=== PATIENT | female | born 1970 | race Hispanic/Latino ===

== ENCOUNTER 2017-04-23 10:51 | Outpatient (CLI) | payer MEDICARE ==
--- NOTE | 2017-04-23 14:23 | EKG ---
Test Reason : Blood Pressure : / mmHG Vent. Rate : 078 BPM Atrial Rate : 078 BPM P-R Int : 162 ms QRS Dur : 090 ms QT Int : 450 ms P-R-T Axes : 059 032 019 degrees QTc Int : 513 ms Sinus rhythm with frequent PVC's Prolonged QT Abnormal ECG No previous ECGs available Confirmed by DR. Joel COOK ([id number]) on 04/23/2017 2:23:07 PM Referred By: MADYSON Confirmed By:DR. Joel COOK
== END 2017-04-23 10:52 | disposition home or self-care (01) ==
LOC: EKG 10:51
PROVIDERS: ATTEND Internal Medicine Nephrology
DX: L49.9 Exfoliation due to erythematous condition involving 90 or more percent of body surface (principal)
CPT/HCPCS: 93005; 93010

== ENCOUNTER 2018-05-01 13:53 | Emergency (ER) | payer MEDICARE ==
--- NOTE | 2018-05-01 15:53 | RAD ---
CHEST 2 VIEWS: Date: 05/01/18 HISTORY: Cough. COMPARISON: None. FINDINGS: There is a subtle right basilar air space opacity. Remainder of lungs are clear. No pneumothorax or effusion. Right upper quadrant surgical clips. IMPRESSION: Faint peripheral right lower lobe air space opacity concerning for infection. Follow-up after treatme nt recommended. POS: [facility]
[2018-05-01 16:48] LABS: #Eosinphils 0.3 thou/uL (0.0-0.7); #Lymphocytes 1.6 thou/uL (1.20-3.40); #Monocytes 0.7 thou/uL (0.11-0.59); #Neutrophils 4.9 thou/uL (1.40-6.50); %Basophils 0.6 % (0.0-1.0); %Eosinophils 3.6 % (0.0-10.0); %Lymphocytes 21.7 % (21.0-51.0); %Monocytes 9.3 % (0.0-10.0); %Neutrophils 64.8 % (42.0-75.0); Hemoglobin 17.6 g/dL (12.0-16.0); Mean Corpuscular Volume 96.7 fL (78.0-98.0); Mean Platelet Volume 6.8 fL (7.4-10.4); Platelet Count 252 thou/uL (130-400); RBC Distribution Width 16.8 % (11.5-14.5); White Blood Cell (WBC) Count 7.5 thou/uL (4.8-10.8)
[2018-05-01 17:03] LABS: ALT (SGPT) 11 U/L (8-55); AST (SGOT) 12 U/L (5-34); Albumin 4.2 g/dL (3.5-5.0); Alkaline Phosphatase 80 U/L (40-150); Anion Gap 24 mmol/L (10-20); BUN (Urea Nitrogen) 29 mg/dL (7.0-18.7); Bilirubin, Total 0.7 mg/dL (0.2-1.2); Calc. Creatinine Clearance 0 mL/min (70-130); Calcium 10.1 mg/dL (7.8-10.44); Carbon Dioxide 23 mmol/L (22-29); Chloride 88 mmol/L (98-107); Estimated GFR-MDRD 4; Globulin 4.5 g/dL (2.4-3.5); Glucose 112 mg/dL (70-105); Potassium 3.7 mmol/L (3.5-5.1); Protein, Total 8.7 g/dL (6.0-8.3); Sodium 131 mmol/L (136-145)
[2018-05-01] MEDS ORDERED: Piperacillin/Tazobactam 4.5 GM VIAL ONE (17:25)
== END 2018-05-01 19:38 | disposition home or self-care (01) ==
LOC: ERS 13:53
DX: J18.9 Pneumonia, unspecified organism (principal); N18.6 End stage renal disease
CPT/HCPCS: 36415; 71046; 80053; 83605; 83880; 84484; 85025; 85379; 93005; 96365; J2543

== ENCOUNTER 2018-05-03 18:01 | Emergency (ER) | payer MEDICARE ==
[2018-05-03 20:35] LABS: #Lymphocytes 1.2 thou/uL (1.20-3.40); #Monocytes 0.7 thou/uL (0.11-0.59); #Neutrophils 11.5 thou/uL (1.40-6.50); %Eosinophils 0.1 % (0.0-10.0); %Lymphocytes 8.7 % (21.0-51.0); %Monocytes 4.9 % (0.0-10.0); %Neutrophils 86.2 % (42.0-75.0); Hemoglobin 17.5 g/dL (12.0-16.0); Mean Corpuscular HGB CONC 32.7 g/dL (32.0-36.0); Mean Corpuscular Hemoglobin 31.1 pg (27.0-31.0); Mean Corpuscular Volume 95.1 fL (78.0-98.0); Mean Platelet Volume 6.8 fL (7.4-10.4); Platelet Count 277 thou/uL (130-400); RBC Distribution Width 16.5 % (11.5-14.5); Red Blood Cell (RBC) Count 5.61 mill/uL (4.20-5.40); White Blood Cell (WBC) Count 13.3 thou/uL (4.8-10.8)
[2018-05-03 20:45] LABS: ALT (SGPT) 11 U/L (8-55); AST (SGOT) 14 U/L (5-34); Albumin 4.1 g/dL (3.5-5.0); Alkaline Phosphatase 72 U/L (40-150); Anion Gap 23 mmol/L (10-20); BUN (Urea Nitrogen) 38 mg/dL (7.0-18.7); Bilirubin, Total 0.6 mg/dL (0.2-1.2); Calc. Creatinine Clearance 0 mL/min (70-130); Calcium 9.8 mg/dL (7.8-10.44); Carbon Dioxide 24 mmol/L (22-29); Chloride 87 mmol/L (98-107); Estimated GFR-MDRD 4; Globulin 4.1 g/dL (2.4-3.5); Glucose 110 mg/dL (70-105); Potassium 3.9 mmol/L (3.5-5.1); Protein, Total 8.2 g/dL (6.0-8.3); Sodium 130 mmol/L (136-145)
== END 2018-05-03 21:04 | disposition home or self-care (01) ==
LOC: ERS 18:01
DX: N18.6 End stage renal disease (principal); I95.9 Hypotension, unspecified; Z51.81 Encounter for therapeutic drug level monitoring
CPT/HCPCS: 36415; 80053; 84484; 85025; 93005

== ENCOUNTER 2018-05-04 11:42 | Emergency (ER) | payer MEDICARE ==
--- NOTE | 2018-05-04 12:51 | RAD ---
PORTABLE UPRIGHT FRONTAL CHEST RADIOGRAPH: Date: 05-04-18 Comparison: 05-01-18 History: Chest pain. FINDINGS: There is no pneumothorax, pleural fluid, focal consolidation, or alveolar edema. Heart and mediastina l contours are grossly unremarkable. IMPRESSION: No acute findings. POS: [facility]
[2018-05-04 13:18] LABS: #Lymphocytes 1.2 thou/uL (1.20-3.40); #Monocytes 0.5 thou/uL (0.11-0.59); #Neutrophils 5.2 thou/uL (1.40-6.50); %Basophils 0.2 % (0.0-1.0); %Eosinophils 0.2 % (0.0-10.0); %Lymphocytes 17.7 % (21.0-51.0); %Monocytes 6.9 % (0.0-10.0); Hemoglobin 17.8 g/dL (12.0-16.0); Mean Corpuscular HGB CONC 31.6 g/dL (32.0-36.0); Mean Corpuscular Hemoglobin 30.3 pg (27.0-31.0); Mean Platelet Volume 6.7 fL (7.4-10.4); Platelet Count 231 thou/uL (130-400); RBC Distribution Width 16.7 % (11.5-14.5); Red Blood Cell (RBC) Count 5.86 mill/uL (4.20-5.40); White Blood Cell (WBC) Count 6.9 thou/uL (4.8-10.8)
[2018-05-04 13:41] LABS: ALT (SGPT) 10 U/L (8-55); AST (SGOT) 15 U/L (5-34); Albumin 4.2 g/dL (3.5-5.0); Alkaline Phosphatase 79 U/L (40-150); Anion Gap 23 mmol/L (10-20); BUN (Urea Nitrogen) 34 mg/dL (7.0-18.7); Bilirubin, Total 0.8 mg/dL (0.2-1.2); CK (CPK) 78 U/L (29-168); Calc. Creatinine Clearance 0 mL/min (70-130); Calcium 9.9 mg/dL (7.8-10.44); Carbon Dioxide 22 mmol/L (22-29); Chloride 86 mmol/L (98-107); Estimated GFR-MDRD 4; Globulin 4.2 g/dL (2.4-3.5); Glucose 92 mg/dL (70-105); Lipase 17 U/L (8-78); Protein, Total 8.4 g/dL (6.0-8.3); Sodium 128 mmol/L (136-145)
[2018-05-04 13:44] LABS: Potassium 2.9 mmol/L (3.5-5.1)
[2018-05-04] MEDS ORDERED: Potassium Chloride 20 MEQ TAB ONE (14:00)
== END 2018-05-04 14:10 | disposition home or self-care (01) ==
LOC: ERS 11:42
DX: E87.6 Hypokalemia (principal); T38.0X5A Adverse effect of glucocorticoids and synthetic analogues, initial encounter; I12.0 Hypertensive chronic kidney disease with stage 5 chronic kidney disease or end stage renal disease; N18.6 End stage renal disease; Z99.2 Dependence on renal dialysis
CPT/HCPCS: 36415; 71045; 80053; 82550; 83690; 83880; 84484; 85025; 93005

== ENCOUNTER 2018-08-03 12:52 | Outpatient (CLI) | payer MEDICARE ==
--- NOTE | 2018-08-03 14:17 | RAD ---
CHEST 2 VIEWS: Date: 08/03/18 HISTORY: Dyspnea. COMPARISON: 05/04/18. FINDINGS: Heart size is within normal limits. Lungs are clear. IMPRESSION: No acute intrathoracic disease. Stable from prior study. POS: [facility]
== END 2018-08-03 12:53 | disposition home or self-care (01) ==
LOC: RAD 12:52
PROVIDERS: ATTEND Internal Medicine Critical Care Medicine
DX: R06.00 Dyspnea, unspecified (principal)
CPT/HCPCS: 71046

== ENCOUNTER 2019-03-16 15:50 | Outpatient (CLI) | payer MEDICARE ==
--- NOTE | 2019-03-16 16:26 | CT ---
CT of the abdomen without contrast: 03/16/2019 COMPARISON: None HISTORY: Peritoneal dialysis catheter leak TECHNIQUE: Axial CT imaging through the abdomen obtained without contrast. Coronal and sagittal refor matted imaging obtained. FINDINGS: Evaluation of the viscera, bowel, vascular structures, and for lymphadenopathy is limited w ithout contrast media. Imaged lung bases unremarkable. Cholecystectomy clips noted. Limited assessment of the liver, spleen, pancreas, and adrenal glands appears unremarkable. There are innumerable hypodense lesions throughout enlarged bilateral kidneys, most consistent with autosomal dominant polycystic kidney dise ase. There is a umbilical hernia which contains fat and fluid, measuring 2.7 cm AP dimension, 2.6 cm trans verse dimension, and 4.0 cm craniocaudal dimension. There is a peritoneal dialysis catheter present which is inserted via a left lower quadrant approach. Catheter tubing curls in the lower abdomen just to the right of midline. There is a small amount of fluid along the course of the peritoneal dialysis catheter within the subcutaneous fat just superf icial to the peritoneal cavity. There is a extensive degree of stranding of the subcutaneous fat with skin thickening inferior to the axial level of the umbilicus both to the left and to the right o f midline, incompletely imaged on this examination, suggesting extensive cellulitis/panniculitis. Review of the osseous structures demonstrates no worrisome lytic or blastic bone lesion. IMPRESSION: Findings suggesting extensive incompletely imaged cellulitis/rpanniculitis as detailed ab ove. Message sent via [employer] to Dr. Damian 03/16/2019 4:21 PM
== END 2019-03-16 15:51 | disposition home or self-care (01) ==
LOC: CT 15:50
PROVIDERS: ATTEND Internal Medicine Nephrology
DX: T85.691A Other mechanical complication of intraperitoneal dialysis catheter, initial encounter (principal)
CPT/HCPCS: 74150

== ENCOUNTER 2019-04-05 14:28 | Day surgery (SDC) | payer MEDICARE ==
[2019-04-04 12:18] VITALS: BMI 31.3
--- NOTE | 2019-04-05 07:10 | HP ---
HISTORY OF PRESENT ILLNESS: Monalisa Gutierrez is a 48-year-old female, dialyzes, Thursday, Thursday, Thursday, [place] [facility], left upper arm fistula. She has been on dialysis since 2017. In 2016, left upper arm dialysis fistula established in [place]. She was referred there because of insurance reasons. She then converted to peritoneal dialysis catheter after having a laparoscopic PD catheter placed in 2017 in [place]. This worked well for her, but then about 2 months ago she began having fluid retention, decreased infiltration, and a CAT scan obtained revealed increased edema, abdominal wall. Dr. aSmmy Damian suspect that she may have a catheter leakage. Once she converted to hemodialysis, the abdominal wall edema, inflammatory changes resolved. CAT scan also revealed an umbilical hernia, but the patient is asymptomatic and on exam, she has a very small defect. Current PD catheter exits the left lower quadrant. She is hoping to go on a cruise in later March and hopes to have this PD catheter placed to have it functional to go on her cruise. Plan is to place her PD catheter and then doing PD within about a week. If she successfully is doing this, she can attend her cruise. PAST SURGICAL HISTORY: Cholecystectomy, laparoscopic E-catheter placement, tubal ligation, left upper arm arteriovenous fistula in 2016, cardiac catheterization in 2018, normal. Cath performed because of low blood pressure, and renal transplant evaluation, it was normal in 2019. Abdominal hysterectomy, [place], 2019. Colonoscopy normal. The patient is on the transplant list. SOCIAL HISTORY: Tobacco, none. Alcohol, none. MEDICATIONS: 1. Midodrine 10 mg a day. 2. Renvela with meals. 3. Calcitriol 5 mg a day. 4. Zolpidem 5 mg as needed. ALLERGIES: SULFA. REVIEW OF SYSTEMS: Noncontributory, 10-point. PHYSICAL EXAMINATION: VITAL SIGNS: Weight 176 pounds, height 5 feet 3 inches, blood pressure 105/46, pulse 84, temperature 97.2 degrees. HEAD, EARS, EYES, NOSE, AND THROAT: Unremarkable. LUNGS: Clear to auscultation. CARDIAC: Regular rate and rhythm without murmur or gallop. ABDOMEN: Soft and nontender. dependent, left lower quadrant PD catheter, left upper extremity fistula, proximal radial artery inflow, cephalic vein upper arm fistula, good thrill and bruit. EXTREMITIES: Unremarkable. No ankle edema. NEUROLOGICAL: Intact, ambulatory. ASSESSMENT AND PLAN: 1. End-stage renal disease, dysfunctional PD catheter, on hemodialysis for several weeks. Plan laparoscopic placement of new PD catheter, removal of old PD catheter, and begin using her PD within a week. She will see her peritoneal dialysis nurse end of the week and begin using the catheter the next week. Hopefully, she can be able to have this functioning at the time of her cruise. She understands the risks and benefits and consents. 2. Polycystic kidney disease. Job ID: [id number]
[~2019-04-05 14:28] MED LIST: Glycopyrrolate 0.2 MG/ML 5 ML SYRINGE ONE; Lidocaine 1% PF 5 ML VIAL ONE; PHENYLEPHRINE-NS 100 MCG/ML 10 ML SYRINGE ONE; PROPOFOL 200 MG/20 ML VIAL ONE; Rocuronium Bromide 10 MG/ML (10ML VIAL) ONE; ePHEDrine/0.9% NaCl/PF SYRINGE 50 mg/10 ml ONE
[2019-04-05 15:14] LABS: #Basophils 0.1 thou/uL (0.0-0.2); #Eosinphils 0.3 thou/uL (0.0-0.7); #Lymphocytes 2.3 thou/uL (1.20-3.40); #Monocytes 0.5 thou/uL (0.11-0.59); #Neutrophils 5.7 thou/uL (1.40-6.50); %Eosinophils 3.6 % (0.0-10.0); %Lymphocytes 25.8 % (21.0-51.0); %Monocytes 5.2 % (0.0-10.0); %Neutrophils 64.5 % (42.0-75.0); Hemoglobin 14.4 g/dL (12.0-16.0); Mean Corpuscular HGB CONC 32.3 g/dL (32.0-36.0); Mean Corpuscular Hemoglobin 31.4 pg (27.0-31.0); Mean Corpuscular Volume 97.4 fL (78.0-98.0); Mean Platelet Volume 6.5 fL (7.4-10.4); Platelet Count 327 thou/uL (130-400); RBC Distribution Width 17.6 % (11.5-14.5); Red Blood Cell (RBC) Count 4.59 mill/uL (4.20-5.40); White Blood Cell (WBC) Count 8.9 thou/uL (4.8-10.8)
[2019-04-05 15:31] LABS: Anion Gap 17 mmol/L (10-20); BUN (Urea Nitrogen) 23 mg/dL (7.0-18.7); Calc. Creatinine Clearance 11 mL/min (70-130); Calcium 9.6 mg/dL (7.8-10.44); Carbon Dioxide 29 mmol/L (22-29); Chloride 98 mmol/L (98-107); Estimated GFR-MDRD 5; Glucose 88 mg/dL (70-105); Potassium 5.3 mmol/L (3.5-5.1); Sodium 139 mmol/L (136-145)
[2019-04-05] MEDS ORDERED: Bupivacaine 0.25% HCL 30 ML VIAL ONE (16:45)
[2019-04-05] MEDS ORDERED: Lidocaine 1% w/Epinephrine 1:100K 20 ML VIAL ONE (16:45)
[2019-04-05] MEDS ORDERED: Bupivacaine PF 0.5% 30 ML VIAL ONE (16:45)
[2019-04-05] MEDS ORDERED: Lidocaine 2% w/Epinephrine 1:200K 20 ML VIAL ONE ×2 (16:45→16:48)
[2019-04-05] MEDS ORDERED: Heparin 10,000 UNITS/1 ML VIAL ONE (16:45)
[2019-04-05] MEDS ORDERED: Fentanyl 100 MCG/2 ML VIAL ONE ×2 (17:00→18:44)
[2019-04-05] MEDS ORDERED: HYDROcodone/Acetaminophen 5/325 mg Tablet ONE ×2 (20:00)
--- NOTE | 2019-04-06 00:50 | OP ---
DATE OF PROCEDURE: 04/05/2019 PREOPERATIVE DIAGNOSES: End-stage renal disease, dysfunctional peritoneal dialysis catheter. POSTOPERATIVE DIAGNOSIS: End-stage renal disease, dysfunctional peritoneal dialysis catheter. PROCEDURE PERFORMED: Removal of old peritoneal dialysis catheter, placement of new peritoneal dialysis catheter right lower quadrant with laparoscopic omentopexy. ANESTHESIA: General, local with 0.5% Marcaine 30 mL mixed with 1% Xylocaine with epinephrine 30 mL. DESCRIPTION OF PROCEDURE: Patient was taken to the operating room, where under general anesthesia, abdomen was prepared with ChloraPrep and draped in routine fashion. Bilateral far lateral subcostal incision made. Pneumoperitoneum to 15 mm. The Veress needle, replaced with a 5 port, video laparoscope inserted. Contralateral port placed under laparoscopic visualization. The old peritoneal dialysis catheter intraperitoneal was not adherent to any omentum. There was no evidence of infection. There were no abnormalities grossly abnormal. Incision was made in the right lower quadrant stab incision and a counter incision was made medial to this periumbilical and 8 mm port placed through this incision directed caudally through the subcutaneous tissue into the rectus sheath visualized laparoscopically, directed within the rectus sheath and penetrating the posterior sheath, peritoneum inferiorly into the pelvis to the right of midline and a double-cuffed pigtail peritoneal dialysis catheter placed through this port and internal cuff placed within the rectus sheath and port removed. The catheter then tunneled to the exit site using a [place] dissector, placed an external cuff beneath the skin exit site. Subcutaneous tissues approximated with 4-0 Monocryl, skin with subdermal 4-0 Monocryl and [place] glue applied. Peritoneal dialysis catheter flushed with heparinized saline solution and secured with a sterile dressing. Omentum was thin but did reach towards the pelvis. Thus, omentopexy laparoscopic performed with 0 Vicryl transabdominal wall fixation using a [place] needle. Pneumoperitoneum reduced. All instruments were removed. All skin incisions were approximated with subdermal 4-0 Monocryl and [place] glue applied. Old peritoneal dialysis catheter removed, dissecting catheter both cuffs free removing it. It was flushed under pressure and there was no evidence of leakage. Patient tolerated the procedure well, has a dressing placed over the old access site. Job ID: [id number]
== END 2019-04-05 20:55 | disposition home or self-care (01) ==
LOC: SDC 14:28
PROVIDERS: ATTEND Specialist
PROC: 0JPT3XZ Removal of Tunneled Vascular Access Device from Trunk Subcutaneous Tissue and Fascia, Percutaneous Approach (ICD-10-PCS; principal; 2019-04-05)
PROC: 0JH83XZ Insertion of Tunneled Vascular Access Device into Abdomen Subcutaneous Tissue and Fascia, Percutaneous Approach (ICD-10-PCS; 2019-04-05)
PROC: 0WPG43Z Removal of Infusion Device from Peritoneal Cavity, Percutaneous Endoscopic Approach (ICD-10-PCS; 2019-04-05)
PROC: 0WHG43Z Insertion of Infusion Device into Peritoneal Cavity, Percutaneous Endoscopic Approach (ICD-10-PCS; 2019-04-05)
DX: T85.611A Breakdown (mechanical) of intraperitoneal dialysis catheter, initial encounter (principal); N18.6 End stage renal disease; Q61.3 Polycystic kidney, unspecified; K42.9 Umbilical hernia without obstruction or gangrene; Z79.899 Other long term (current) drug therapy; Z88.2 Allergy status to sulfonamides; Z99.2 Dependence on renal dialysis
CPT/HCPCS: 80048; 85025; 93005; 93010; J0690; J1644; J2001; J2704; J3010; S0020

== ENCOUNTER 2022-11-25 08:51 | Outpatient (CLI) | payer BC, MEDICARE | END 2022-11-25 08:52 | disposition home or self-care (01) | LOC: BICMAMMO 08:51 | PROVIDERS: ATTEND Nurse Practitioner Family | DX: Z12.31 Encounter for screening mammogram for malignant neoplasm of breast (principal) | CPT/HCPCS: 77063; 77067 ==

== ENCOUNTER 2024-03-09 12:36 | Emergency (ER) | payer BC ==
[2024-03-09 14:21] LABS: #Basophils Less than 0.03 10x3/uL (0.0-0.2); %Basophils 0.1 % (0.0-1.0); %Eosinophils 0.2 % (0.0-10.0); %Lymphocytes 8.5 % (21.0-51.0); %Monocytes 5.4 % (0.0-10.0); %Neutrophils 85.5 % (42.0-75.0); Hematocrit 37.2 % (36.0-47.0); Hemoglobin 11.6 g/dL (12.0-16.0); Mean Corpuscular HGB CONC 31.2 g/dL (32.0-36.0); Mean Corpuscular Volume 89.9 fL (78.0-98.0); Mean Platelet Volume 9.9 fL (7.4-10.4); Platelet Count 313 10x3/uL (130-400); RBC Distribution Width 13.4 % (11.5-14.5); Red Blood Cell (RBC) Count 4.14 mill/uL (4.20-5.40)
[2024-03-09 14:43] LABS: ALT (SGPT) 10 U/L (8-55); AST (SGOT) 14 U/L (5-34); Albumin 3.8 g/dL (3.5-5.0); Alkaline Phosphatase 79 U/L (40-110); Anion Gap 16 mmol/L (10-20); BUN (Urea Nitrogen) 31 mg/dL (9.8-20.1); Bilirubin, Total 0.4 mg/dL (0.2-1.2); Calc. Creatinine Clearance 0 mL/min (70-130); Calcium 9.4 mg/dL (7.8-10.44); Carbon Dioxide 27 mmol/L (22-29); Chloride 104 mmol/L (98-107); Estimated GFR 35; Globulin 2.9 g/dL (2.4-3.5); Glucose 111 mg/dL (70-105); Potassium 3.7 mmol/L (3.5-5.1); Protein, Total 6.7 g/dL (6.0-8.3); Sodium 143 mmol/L (136-145)
[2024-03-09 14:45] LABS: Troponin I Less than 0.010 ng/mL (< 0.028)
== END 2024-03-09 16:37 | disposition home or self-care (01) ==
LOC: ERS 12:36
DX: L03.116 Cellulitis of left lower limb (principal); N18.6 End stage renal disease; Z94.4 Liver transplant status; Z94.0 Kidney transplant status
CPT/HCPCS: 36415; 80053; 84484; 85025

== ENCOUNTER 2024-03-11 18:50 | Emergency (ER) | payer BC ==
[2024-03-11] MEDS ORDERED: Dexamethasone 10 MG/ML VIAL ONE (20:35)
== END 2024-03-11 20:44 | disposition home or self-care (01) ==
LOC: ERS 18:50
DX: M10.9 Gout, unspecified (principal)
CPT/HCPCS: 36415; 84550; 96372; 99283; J1100

== ENCOUNTER 2024-12-24 02:36 | Emergency (ER) | payer BC, SELFPAY ==
[2024-12-24 03:55] LABS: #Basophils 0.03 10x3/uL (0.0-0.2); #Eosinophils 0.03 10x3/uL (0.0-0.7); #Monocytes 0.71 10x3/uL (0.11-0.59); #Neutrophils 10.32 10x3/uL (1.40-6.50); %Basophils 0.2 % (0.0-1.0); %Eosinophils 0.2 % (0.0-10.0); %Lymphocytes 12.2 % (21.0-51.0); %Monocytes 5.6 % (0.0-10.0); %Neutrophils 81.4 % (42.0-75.0); Hematocrit 36.0 % (36.0-47.0); Hemoglobin 11.2 g/dL (12.0-16.0); Mean Corpuscular Hemoglobin 27.8 pg (27.0-31.0); Mean Corpuscular Volume 89.3 fL (78.0-98.0); Platelet Count 295 10x3/uL (130-400); Red Blood Cell (RBC) Count 4.03 mill/uL (4.20-5.40); White Blood Cell (WBC) Count 12.69 10x3/uL (4.8-10.8)
[2024-12-24 04:12] LABS: Anion Gap 15 mmol/L (10-20); BUN (Urea Nitrogen) 33 mg/dL (9.8-20.1); Calc. Creatinine Clearance 0 mL/min (70-130); Carbon Dioxide 22 mmol/L (22-29); Chloride 110 mmol/L (98-107); Potassium 3.4 mmol/L (3.5-5.1); Sodium 144 mmol/L (136-145)
[2024-12-24 04:13] LABS: ALT (SGPT) Less than 7 U/L (Less than 34); AST (SGOT) 16 U/L (11-34); Albumin 3.6 g/dL (3.1-4.5); Alkaline Phosphatase 97 U/L (40-110); Bilirubin, Total 0.3 mg/dL (0.3-1.2); Calcium 9.1 mg/dL (7.8-10.44); Globulin 3.0 g/dL (2.4-3.5); Glucose 108 mg/dL (70-105)
[2024-12-24 04:27] LABS: Bacteria/HPF None Seen HPF (None Seen); CAUTI Indications for Culture Pelvic or flank pain; Glucose, Urine (Dipstick) Normal (Negative); Leukocyte 75 Leu/uL (Negative); Protein, Urine (Dipstick) 70 mg/dL (Neg-Trace); RBC/HPF Greater than 50 HPF (0-3); Specific Gravity, Urine 1.016 (1.002-1.036); WBC/HPF Greater than 50 HPF (0-3)
[2024-12-24 04:48] LABS: Urine Culture Reflex Yes Yes
[2024-12-24] MEDS ORDERED: Tranexamic Acid 1,000 MG/10 ML VIAL ONE (05:40)
[2024-12-24] MEDS ORDERED: Ondansetron PF 4 MG/2 ML Vial ONE ×2 (07:14→08:52)
== END 2024-12-24 09:00 | disposition short-term general hospital (02) ==
LOC: ERS 02:36
DX: N93.9 Abnormal uterine and vaginal bleeding, unspecified (principal)
CPT/HCPCS: 36415; 76856; 80053; 81001; 83605; 85025; 86850; 86900; 86901; 87086; 96374; 96375; 96376; J2270; J2405

== ENCOUNTER 2025-01-17 07:03 | Day surgery (SDC) | payer SELFPAY ==
[2025-01-16 15:15] VITALS: BMI 32.8
[~2025-01-17 07:03] MED LIST changes: +EPINEPHrine 0.3 MG in Ophthalmic Irrigation Solution 500 ML IRR SCH; -Glycopyrrolate 0.2 MG/ML 5 ML SYRINGE ONE; -Lidocaine 1% PF 5 ML VIAL ONE; -PHENYLEPHRINE-NS 100 MCG/ML 10 ML SYRINGE ONE; -PROPOFOL 200 MG/20 ML VIAL ONE; -Rocuronium Bromide 10 MG/ML (10ML VIAL) ONE; -ePHEDrine/0.9% NaCl/PF SYRINGE 50 mg/10 ml ONE
[2025-01-17] MEDS ORDERED: Cyclopentolate 1% Opth Drop 2 ML BOT ONE (07:46)
[2025-01-17 08:29] LABS: #Basophils Less than 0.03 10x3/uL (0.0-0.2); #Eosinophils 0.06 10x3/uL (0.0-0.7); #Monocytes 0.64 10x3/uL (0.11-0.59); #Neutrophils 5.44 10x3/uL (1.40-6.50); %Basophils 0.3 % (0.0-1.0); %Eosinophils 0.8 % (0.0-10.0); %Lymphocytes 19.3 % (21.0-51.0); %Monocytes 8.3 % (0.0-10.0); %Neutrophils 70.9 % (42.0-75.0); Hematocrit 34.1 % (36.0-47.0); Hemoglobin 10.3 g/dL (12.0-16.0); Mean Corpuscular Hemoglobin 27.2 pg (27.0-31.0); Mean Corpuscular Volume 90.2 fL (78.0-98.0); Platelet Count 289 10x3/uL (130-400); Red Blood Cell (RBC) Count 3.78 mill/uL (4.20-5.40); White Blood Cell (WBC) Count 7.67 10x3/uL (4.8-10.8)
[2025-01-17 08:46] LABS: Anion Gap 16 mmol/L (10-20); BUN (Urea Nitrogen) 30 mg/dL (9.8-20.1); Calc. Creatinine Clearance 51 mL/min (70-130); Calcium 8.8 mg/dL (7.8-10.44); Carbon Dioxide 22 mmol/L (22-29); Chloride 109 mmol/L (98-107); Glucose 95 mg/dL (70-105); Potassium 3.6 mmol/L (3.5-5.1); Sodium 143 mmol/L (136-145)
[2025-01-17] MEDS ORDERED: PROPOFOL 20 ML ONE (08:47)
[2025-01-17] MEDS ORDERED: Lidocaine 1% PF 5 ML VIAL ONE ×2 (08:47→09:33)
[2025-01-17] MEDS ORDERED: Hydrocortisone Sod Succ/PF 100 mg/2 ml Vial ONE (09:18)
[2025-01-17] MEDS ORDERED: Maxitrol 0.1% Opth Oint 3.5 GM TUBE ONE (09:33)
[2025-01-17] MEDS ORDERED: Lidocaine 4% PF 5 ML AMP ONE (09:33)
[2025-01-17] MEDS ORDERED: CEFAZOLIN 1 GM VIAL ONE (09:33)
== END 2025-01-17 10:55 | disposition home or self-care (01) ==
LOC: SDC 07:03
PROVIDERS: ATTEND Ophthalmology Retina Specialist
PROC: 08T43ZZ Resection of Right Vitreous, Percutaneous Approach (ICD-10-PCS; principal; 2025-01-17)
DX: H33.021 Retinal detachment with multiple breaks, right eye (principal); Z88.2 Allergy status to sulfonamides
CPT/HCPCS: 67025; 80048; 85025; 93005; 93010; J0166; J0690; J1720; J2250; J2704; J3301; J3490

== ENCOUNTER 2025-03-21 06:41 | Day surgery (SDC) | payer OTHER, SELFPAY ==
[2025-03-21] MEDS ORDERED: EPINEPHrine 0.3 MG in Ophthalmic Irrigation Solution 500 ML IRR SCH (07:00)
[2025-03-21] MEDS ORDERED: Cyclopentolate 1% Opth Drop 2 ML BOT ONE (09:13)
[2025-03-21] MEDS ORDERED: Lidocaine 1% PF 5 ML VIAL ONE (10:16)
== END 2025-03-21 12:47 | disposition home or self-care (01) ==
LOC: SDC 06:41
PROVIDERS: ATTEND Ophthalmology Retina Specialist
PROC: 08B43ZZ Excision of Right Vitreous, Percutaneous Approach (ICD-10-PCS; principal; 2025-03-21)
DX: H33.41 Traction detachment of retina, right eye (principal); Z90.49 Acquired absence of other specified parts of digestive tract; Z90.710 Acquired absence of both cervix and uterus; Z88.2 Allergy status to sulfonamides
CPT/HCPCS: C1814; J0166; J2250; J3010